=== PATIENT | female | born 1990 | race Asian ===

== ENCOUNTER 2016-12-27 16:20 | Inpatient (IN) | payer OTHER ==
--- NOTE | ~2016-12-27 | CT4 ---
[facility] A Service of [facility] & [facility] RADIOLOGY TEXT RESULTS PATIENT: VICKI GUTIÉRREZ LOCATION: C3A 304-01 : [birth year] UNIT #: [id number] AGE: [address]: Gretel Fatima MD SEX: F ORDER DR: [id number] [facility] [address] [place], [place] [address] [id number] I MR#: [id number] Acc #: [id number] NAME: VICKI GUTIÉRREZ : 1990 SEX: F STUDY DATE/TIME: 12/27/2016 17:26 UNIT: C3A PCU ROOM: [facility] STUDY DESCRIPTION: CT Abd and Pelv Wo Cont Attending Physician: Mare Gaston M.D. Ordering Physician: Hebert Persaud D.O. Primary Care Physician: Padmini Doyle M.D. MEDICAL IMAGING REPORT This report is preliminary unless electronic signature is present EXAM CT scan of the abdomen and pelvis without contrast, 12/27/2016 HISTORY Left flank pain and hematuria for 3 days, evaluate for obstructing renal calculus. TECHNIQUE Spiral CT was performed through the abdomen and pelvis without oral or intravenous contrast administration using renal stone protocol. This CT exam was performed with one or more of the following radiation dose reduction techniques: Automatic exposure control, adjustment of mA and/or kV according to patient size, and iterative reconstruction. FINDINGS ABDOMEN: There is no obstructing renal or ureteral calculus. There is, however, some inflammatory stranding in the fat surrounding the left kidney and proximal left ureter. Findings could reflect a recently passed stone, but no calculus is seen within the bladder. Alternatively, the findings could reflect renal infection. Clinical correlation is recommended to exclude pyelonephritis. There is a 1 mm nonobstructing stone in the left kidney. The liver, spleen, pancreas, gallbladder and biliary tree and adrenal glands are normal. PELVIS FINDINGS: The gut, mesenteric and sidra structures are normal. There is no free fluid in the abdomen or pelvis. IMPRESSION 1. No obstructing stone is seen. There is, however, some inflammatory stranding in the fat surrounding the left kidney and the proximal left ureter. Findings could reflect a recently passed stone but no calculus is seen within the bladder. Clinical correlation is recommended. Alternatively, the findings could reflect left kidney STS. [facility] A Service of [facility] RADIOLOGY TEXT RESULTS PATIENT: VICKI GUTIÉRREZ LOCATION: [facility] 304-01 : [birth year] UNIT #: [id number] AGE: [address]: Gretel Fatima MD SEX: F ORDER DR: infection. Correlate clinically to exclude left pyelonephritis. 2. 1 mm nonobstructing stone, left kidney. Dictated by... Syed Singh M.D. THIS IS AN ELECTRONICALLY VERIFIED REPORT Syed Singh M.D. at 12/28/2016 10:28 AM KRT/psc TD: 12/27/2016 22:50 JOB #: [id number] MEDICAL IMAGING REPORT Page 1 of 1 COPY
--- NOTE | ~2016-12-27 | DS ---
Unit #: [id number] #: [id number] Patient: VICKI GUTIÉRREZ [id number] [address] [place], [place] [address] [id number] I MR#: [id number] NAME: VICKI GUTIÉRREZ ROOM: 304 Age: 26 Sex: F Admission Date: 12/27/2016 : 1990 Discharge Date: 12/29/2016 Attending Physician: Gretel Fatima M.D. Primary Care Physician: Padmini Doyle M.D. DISCHARGE SUMMARY ADMISSION DIAGNOSES 1. Acute pyelonephritis. 2. Sepsis with initial lactic acid of 1.5. 3. Hypokalemia. 4. History of seizures, not currently on antiepileptic medication. DISCHARGE DIAGNOSES 1. Acute pyelonephritis, stable. 2. Sepsis with septic shock, resolved. Blood pressure controlled and stable. 3. History of seizures on no antiepileptic drugs. 4. Hypokalemia, resolved. 5. Metabolic acidosis, improved. CONSULTANTS None. PROCEDURES None. DIAGNOSTIC STUDIES LABORATORY: Lactic acid 1.5, 1.3. WBC 9.2, hemoglobin 12.3, hematocrit 37.5, platelet count 197,000. Sodium 136, potassium 3.9, chloride 105, CO2 22, glucose 84, BUN 5, creatinine 0.8, calcium 8.3. Urine culture, final, E. coli greater than 100,000 CFU/mL sensitive to Rocephin and nitrofurantoin. Blood cultures, preliminary, x2, no growth at 24 hours. IMAGING: CT of the abdomen and pelvis without contrast. Impression: No obstructing stone seen. However, some inflammatory stranding in the fat surrounding the left kidney and proximal left ureter. Findings could reflect recently passed stone but no calculus is seen within the bladder. Clinical correlation recommended. Alternatively, findings could reflect left kidney infection. Correlate clinically to exclude left pyelonephritis. A 1 mm nonobstructing stone in the left kidney. DISCHARGE MEDICATIONS 1. Tylenol 650 mg p.o. every six hours p.r.n. mild pain or temp greater than 100.4. 2. Hydrocodone/APAP 5/325 mg tab one p.o. q.8 hours p.r.n. pain, #21, no refills. 3. Nitrofurantoin 100 mg p.o. b.i.d. x14 days, #28, no refills. DISCHARGE INSTRUCTIONS 1. The patient is to call and schedule a followup appointment with her Unit #: [id number] #: [id number] Patient: MARLAVICKI primary care physician in one week. 2. She is also to call and schedule a followup appointment with Dr. Walter, urologist, in one to two weeks for frequent urinary tract infections. DISPOSITION Home. CONDITION Stable. HOSPITAL COURSE The patient is a 26-year-old female who presented to [facility] emergency department for evaluation of flank pain. A CT of the abdomen and pelvis was performed which revealed the above dictated findings. The patient's urine was positive for leukocyte esterase 3+, nitrite positive, blood 2+ and innumerable WBCs with 4+ bacteria. The patient was admitted to the hospital for further evaluation and management of her condition. The patient was noted to have some hypotension in the emergency department. The patient was treated with IV fluids. She was started on Rocephin one gram IV daily pending urine culture result. The patient is tolerating food and fluids well today. She is afebrile and urinating without difficulty. She does have hematuria. She started her menstrual cycle yesterday. Her potassium was a bit low and she was repleted and now has a normal potassium level of 3.9. She does complain of some lower abdominal pain. She has been evaluated by Dr. Fatima and cleared for discharge home with discharge instructions and discharge medications as dictated above. The patient has been given a prescription for nitrofurantoin and Lortab (this prescription written by Dr. Fatima as dictated under discharge medications above). Dictated by... Olivia Puente A.P.R.N. for Kirit Shabazz/anaid TD: 12/31/2016 13:04 JOB #: [id number] DISCHARGE SUMMARY Page 1 of 1 X Olivia Puente APRN X DISCHARGE SUMMARY
--- NOTE | ~2016-12-27 | HP ---
Unit #: [id number] #: [id number] Patient: VICKI GUTIÉRREZ [id number] [place], [place] [address] [id number] I MR#: [id number] NAME: VICKI GUTIÉRREZ ROOM: [address]7430 Age: 26 Sex: F Admission Date: 12/27/2016 : 1990 Attending Physician: Mare Gaston M.D. Primary Care Physician: Padmini Doyle M.D. HISTORY AND PHYSICAL CHIEF COMPLAINT Flank pain. HISTORY OF PRESENT ILLNESS The patient is a 26-year-old female with a past medical history of seizures who presented to the emergency department for evaluation of the above. The patient states that she has not been feeling well since December 26, 2016. She states that she has had left flank pain that she describes as "achy." It has been fairly constant in nature. She states that it has radiated to the groin at times. She states that it is alleviated somewhat by placement of a pillow in that area. She has also had fever and chills. She states that the pain is similar to when she has had a "kidney infection" in the past. She reports three bouts of nonbloody emesis within the past 24 hours. In the emergency department, initial temperature was 101.8 and pulse 140. Urinalysis shows findings consistent with urinary tract infection. A CT of the abdomen and pelvis is pending at the time of this dictation. White blood cell count is 24.7. She was given two liters of normal saline, as well as a gram of Rocephin. She is being admitted to [facility] for evaluation and further treatment. PAST MEDICAL HISTORY Seizure. The patient states that she has several seizures. The initial seizure was at the age of 25. She was on Keppra. She had what sounds like an EEG, as well as an MRI. She was taken off the Keppra by a neurologist and has not been on any antiepileptic medication for the past four to five months. PAST SURGICAL HISTORY Finger surgery. SOCIAL HISTORY The patient has a history of drug use in the past (opiates and Xanax per record review). The patient currently denies any tobacco, alcohol, or illicit drug use. She is unemployed. She lives with her mom. FAMILY HISTORY Notable for both parents being healthy. ALLERGIES No known allergies. Unit #: [id number] #: [id number] Patient: VICKI GUTIÉRREZ HOME MEDICATIONS None. REVIEW OF SYSTEMS A complete review of systems is negative except as indicated in the History of Present Illness. PHYSICAL EXAMINATION VITAL SIGNS: Temperature 101.8, pulse 140, respirations 15, and blood pressure 104/70. GENERAL: Patient is awake, alert, and in no acute distress. HEENT: Head is atraumatic. Mucous membranes are moist. NECK: Supple. Trachea is midline. CARDIOVASCULAR: Tachycardic in the 100s. LUNGS: Clear to auscultation bilaterally with no increased work of breathing. ABDOMEN: Soft and nontender with bowel sounds present in all four quadrants. EXTREMITIES: Nontender with no pedal edema. NEUROLOGIC: Patient is awake and alert. She follows commands. PSYCHIATRIC: Mood and affect are normal. Patient is cooperative. SKIN: Skin of examined areas is warm and dry. GENITOURINARY: Patient does have left costovertebral angle tenderness to palpation. DIAGNOSTIC STUDIES LABORATORY: Urine test is negative. Complete blood count notable for white blood cell count of 24.7. Comprehensive metabolic panel notable for sodium of 131, potassium 3.1, chloride 98, and glucose 121. Lipase is 13. Lactic acid 1.5. Urinalysis notable for 3+ leukocyte esterase, positive nitrite, 2+ protein, and 2+ blood with 5-10 red blood cells, enumerable white blood cells, and 4+ bacteria. IMAGING: CT of the abdomen and pelvis is pending. ASSESSMENT The patient is a 26-year-old female with: 1. Acute pyelonephritis. The patient received Rocephin in the emergency department. There are no urine cultures in [facility] for review. 2. Sepsis with an initial lactic acid of 1.5. 3. Hypokalemia. 4. History of seizures, not currently on antiepileptic medication. PLAN 1. Admit to intermediate level. 2. Advance diet to regular diet as tolerated. 3. Normal saline at 125 mL/hour. 4. Blood cultures x2. 5. Urine culture and sensitivity on urine in the lab. 6. Rocephin 1 gram IV daily pending results of urine culture. 7. Sepsis protocol with repeat lactic acid. 8. Monitor blood pressure closely. 9. Check EKG for further evaluation of tachycardia. 10. Check magnesium level. 11. Potassium/magnesium protocol. 12. P.r.n. Tylenol. 13. SCDs for DVT prophylaxis. Unit #: [id number] #: [id number] Patient: VICKI GUTIÉRREZ 14. Repeat labs in the morning including magnesium. 15. Follow up results of CT abdomen and pelvis. 16. Additional workup and consultants based on above. 1. Dictated by Kirit Colbert/terrie TD: 12/27/2016 20:57 JOB #: [id number] HISTORY AND PHYSICAL Page 1 of 1 X Mare Gaston MD X HISTORY AND PHYSICAL
[~2016-12-27 16:20] MED LIST: DILANTIN KAPSE100 MG PO; FLEXERIL10 MG PO; KEFLEX125 MG/5 M PO; MOTRIN50 MG PO; MOTRIN600 M1 PO; NO MEDICATIONS; PREDNISONE1 MG PO; TORADOL10 MG PO
[2016-12-27 16:59] LABS: URINE SOURCE CLEAN CATCH
[2016-12-27 17:04] LABS: URINE APPEARANCE CLOUDY; URINE BILIRUBIN NEG (NEG); URINE BLOOD 2+ (NEG); URINE COLOR YELLOW; URINE GLUCOSE NEG (NEG); URINE KETONE NEG (NEG); URINE LEUKOCYTE ESTERASE 3+ (NEG); URINE NITRATE POS (NEG); URINE PROTEIN 2+ (NEG); URINE SPECIFIC GRAVITY 1.014 (1.003-1.035)
[2016-12-27 17:06] LABS: CULTURE INDICATED? YES; URINE BACTERIA AUWI 4+ (NEGATIVE); URINE SQUAMOUS EPITHELIAL CELL OCC /[HPF]; UWBCS1 AUWI INNUM (0-5)
[2016-12-27 17:08] LABS: BASOPHIL# 0.1 X10e3 (0-0.3); BASOPHIL% 0.4 % (0-2.5); HEMATOCRIT 36.9 % (35.0-45.0); HEMOGLOBIN 12.2 gm/dL (12.0-16.0); LYMPHOCYTE# 1.2 X10e3 (1.0-3.5); LYMPHOCYTE% 4.8 % (17.0-45.0); MEAN CELL VOLUME 89.3 FL (83-96); MEAN CORPUSCULAR HEMOGLOBIN 29.6 PG (28-34); MEAN CORPUSCULAR HGB CONC 33.1 g/dL (30-36); MEAN PLATELET VOLUME 8.5 FL (6.5-11.5); MONOCYTE# 2.6 X10e3 (0-1.0); MONOCYTE% 10.5 % (3.0-12.0); NEUTROPHIL# 20.8 X10e3 (1.5-7.1); NEUTROPHIL% 84.3 % (40-75); PLATELET COUNT 241 X10e3 (140-420); RED BLOOD COUNT 4.13 X10e (3.90-5.30); RED CELL DISTRIBUTION WIDTH 13.1 % (11.0-15.5); WHITE BLOOD COUNT 24.7 X10e3 (4.0-10.5)
[2016-12-27 17:09] LABS: DIFF IND YES
[2016-12-27 17:36] LABS: PLATELET ESTIMATE NORMAL (NORMAL); STOMATOCYTE PRESENT; VACUOLIZATION MOD
[2016-12-27 17:48] LABS: ALBUMIN SERUM 3.6 g/dL (3.5-5.0); BILIRUBIN, DIRECT 0.3 mg/dL (0.0-0.2); BILIRUBIN,INDIRECT 1.3 mg/dL (0.0-0.9); BILIRUBIN,TOTAL 1.6 mg/dL (0.2-2.0); BUN/CREATININE RATIO 7.77; CALCIUM SERUM 8.7 mg/dL (8.4-10.2); CREATININE SERUM 0.9 mg/dL (0.6-1.4); GLOM FILT RATE Estimated 88.3 mL/min (>60); POTASSIUM 3.1 mmol/L (3.5-5.1)
[2016-12-27 20:23] LABS: AMPHETAMINE NEG (NEG); BARBITURATES NEG (NEG); BENZODIAZEPINES NEG (NEG); COCAINE NEG (NEG); MARIJUANA NEG (NEG); OPIATES NEG (NEG); TRICYCLIC ANTIDEPRESSANTS NEG (NEG); U METHADONE NEG (NEG)
[2016-12-28 09:08] LABS: BASOPHIL% 0.2 % (0-2.5); DIFF IND NO; EOSINOPHIL% 0.1 % (0.0-7.0); HEMATOCRIT 38.3 % (35.0-45.0); HEMOGLOBIN 12.3 gm/dL (12.0-16.0); LYMPHOCYTE# 0.5 X10e3 (1.0-3.5); LYMPHOCYTE% 3.1 % (17.0-45.0); MEAN CELL VOLUME 91.4 FL (83-96); MEAN CORPUSCULAR HEMOGLOBIN 29.4 PG (28-34); MEAN CORPUSCULAR HGB CONC 32.2 g/dL (30-36); MEAN PLATELET VOLUME 8.5 FL (6.5-11.5); MONOCYTE# 0.8 X10e3 (0-1.0); NEUTROPHIL# 14.2 X10e3 (1.5-7.1); NEUTROPHIL% 91.6 % (40-75); PLATELET COUNT 213 X10e3 (140-420); RED BLOOD COUNT 4.19 X10e (3.90-5.30); RED CELL DISTRIBUTION WIDTH 13.5 % (11.0-15.5); WHITE BLOOD COUNT 15.5 X10e3 (4.0-10.5)
[2016-12-28 09:41] LABS: BILIRUBIN,TOTAL 0.9 mg/dL (0.2-2.0); CALCIUM SERUM 8.5 mg/dL (8.4-10.2); CREATININE SERUM 0.8 mg/dL (0.6-1.4); GLOM FILT RATE Estimated 101.8 mL/min (>60); POTASSIUM 4.1 mmol/L (3.5-5.1); PROTEIN TOTAL SERUM 5.9 g/dL (6.0-8.3)
[2016-12-29 06:05] LABS: HEMATOCRIT 37.5 % (35.0-45.0); HEMOGLOBIN 12.3 gm/dL (12.0-16.0); MEAN CELL VOLUME 91.7 FL (83-96); MEAN CORPUSCULAR HGB CONC 32.7 g/dL (30-36); MEAN PLATELET VOLUME 8.8 FL (6.5-11.5); RED BLOOD COUNT 4.09 X10e (3.90-5.30); RED CELL DISTRIBUTION WIDTH 13.6 % (11.0-15.5); WHITE BLOOD COUNT 9.2 X10e3 (4.0-10.5)
[2016-12-29 06:55] LABS: BUN/CREATININE RATIO 8.33; CALCIUM SERUM 8.3 mg/dL (8.4-10.2); CREATININE SERUM 0.6 mg/dL (0.6-1.4); GLOM FILT RATE Estimated 125.8 mL/min (>60); POTASSIUM 3.9 mmol/L (3.5-5.1)
[2016-12-29] MEDS ORDERED: LORTAB 5-325 M1 EACH PO (15:33)
[2016-12-29] MEDS ORDERED: NITROFURANTOIN100 M3 PO (15:34)
== END 2016-12-29 17:54 | disposition home or self-care (01) | DRG 871 ==
LOC: CED 16:20 → CEDOF 19:10 → C3A PCU 21:03
PROVIDERS: Emergency Medicine; Family Medicine; Internal Medicine
DX: A41.9 Sepsis, unspecified organism (principal); R65.21 Severe sepsis with septic shock; E87.2 Acidosis; N10 Acute pyelonephritis; E87.6 Hypokalemia; G40.909 Epilepsy, unspecified, not intractable, without status epilepticus; N20.0 Calculus of kidney
CPT/HCPCS: 36415; 74176; 80048; 80053; 80076; 80307; 81003; 83605; 83690; 83735; 84703; 85025; 85027; 87040; 87086; 87088; 87186; 96361; 96374; 96375; 99285; J0696; J1885; J2405; J3475